=== PATIENT | female | born 1970 | race Caucasian/White ===

== ENCOUNTER → 2016-06-20 | Outpatient (CLI) | payer BC ==
[2016-06-20 09:29] LABS: CH 24.3; CHCM 30.4; HCT 41.5 % (34.0-46.0); HDW 2.53; HGB 12.5 gm/dL (11.4-16.0); Hypochromasia Moderate; MCH 24.2 pg (25.0-35.0); MCHC 30.1 g/dL (31.0-37.0); MCV 80.4 fL (80.0-100.0); Mean Platelet Volume 6.4; RBC 5.17 m/uL (3.80-5.40); RDW 14.2 % (11.5-15.5); WBC 4.7 k/uL (3.8-10.6)
[2016-06-20 09:51] LABS: ALT 28 U/L (9-52); AST 19 U/L (14-36); Alkaline Phosphatase 65 U/L (38-126); Anion Gap 10 mmol/L; Blood Urea Nitrogen 9 mg/dL (7-17); Calcium 9.5 mg/dL (8.4-10.2); Carbon Dioxide 27 mmol/L (22-30); Chloride 105 mmol/L (98-107); Cholesterol 177 mg/dL (<200); Glucose 88 mg/dL (74-99); HDL Cholesterol 53 mg/dL (40-60); Non-African American GFR(MDRD) >60 (>60 ml/min/1.73 sqM); Potassium 4.4 mmol/L (3.5-5.1); Sodium 142 mmol/L (137-145); Total Bilirubin 0.6 mg/dL (0.2-1.3); Total Protein 7.1 g/dL (6.3-8.2); Triglycerides 117 mg/dL (<150)
--- NOTE | 2016-06-21 09:29 | MM ---
Reason for exam: screening (asymptomatic). Last mammogram was performed 1 year and 6 months ago. History: Benign right US cyst aspiration of the right breast, March 05, 2008. Physical Findings: A clinical breast exam by your physician is recommended on an annual basis and results should be correlated with mammographic findings. MG 3D Screening Mammo W/Cad Bilateral CC and MLO view(s) were taken. Prior study comparison: December 20, 2014, bilateral MG diagnostic mammo w CAD RITA. September 23, 2013, CAD bilateral diagnostic mammogram. The breast tissue is heterogeneously dense. This may lower the sensitivity of mammography. Finding: There are skin calcifications in the left breast. There is a chronic nodularity bilaterally. There is no dominant lesion. No significant changes in finding since December 20, 2014 and September 23, 2013. ASSESSMENT: Benign, BI-RAD 2 RECOMMENDATION: Routine screening mammogram of both breasts in 1 year.
== END | disposition home or self-care (01) ==
LOC: RADMAMWWP 07:54
PROVIDERS: ATTEND Family Medicine
DX: Z12.31 Encounter for screening mammogram for malignant neoplasm of breast (principal)
CPT/HCPCS: 84439; 80061; 80053; 84443; 85027; 77063; 36415; G0202

== ENCOUNTER → 2016-11-19 | Outpatient (CLI) | payer BC ==
[2016-11-19 16:32] LABS: CH 24.7; CHCM 30.9; HCT 37.5 % (34.0-46.0); HDW 2.45; HGB 11.9 gm/dL (11.4-16.0); Hypochromasia Slight; MCH 25.4 pg (25.0-35.0); MCHC 31.7 g/dL (31.0-37.0); MCV 80.2 fL (80.0-100.0); RBC 4.68 m/uL (3.80-5.40); RDW 14.4 % (11.5-15.5); WBC 6.4 k/uL (3.8-10.6)
[2016-11-19 16:46] LABS: ALT 25 U/L (9-52); AST 15 U/L (14-36); Alkaline Phosphatase 60 U/L (38-126); Anion Gap 9 mmol/L; Blood Urea Nitrogen 11 mg/dL (7-17); Calcium 9.3 mg/dL (8.4-10.2); Carbon Dioxide 26 mmol/L (22-30); Chloride 105 mmol/L (98-107); Glucose 92 mg/dL (74-99); Magnesium 2.1 mg/dL (1.6-2.3); Non-African American GFR(MDRD) >60 (>60 ml/min/1.73 sqM); Potassium 4.4 mmol/L (3.5-5.1); Sodium 140 mmol/L (137-145); Total Bilirubin 0.5 mg/dL (0.2-1.3)
== END | disposition home or self-care (01) ==
LOC: LABWHC1 16:18
PROVIDERS: ATTEND Family Medicine
DX: K21.0 Gastro-esophageal reflux disease with esophagitis (principal); E66.09 Other obesity due to excess calories; Z68.31 Body mass index [BMI] 31.0-31.9, adult; Z71.89 Other specified counseling
CPT/HCPCS: 36415; 80053; 83735; 85027

== ENCOUNTER → 2017-09-17 | Outpatient (CLI) | payer BC ==
--- NOTE | 2017-09-17 12:56 | US ---
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 Abn labs, not on any thyroid medi cine GLAND SIZE: Right Lobe: 4.9 x 1.2 x 1.9 cm Overall Parenchyma: homogenous Left Lobe: 4.6 x 1.3 x 1.6 cm Overall Parenchyma: homogeneous Isthmus Thickness: 0.3 cm NODULES RIGHT: # of nodules measured on right: 3 1. 0.9 X 0.7 x 0.6 cm mixed nodule at the upper pole with well-defined margins. This nodule is matt ler than wide and shows no intranodular vascularity. Prior size: No prior 2. 0.5 X 0.4 x 0.3 cm hypoechoic nodule at the upper pole with well-defined margins. This nodule i s taller than wide and shows intranodular vascularity. Prior size: No prior 3. 0.8 X 0.6 x 0.4 cm hypoechoic solid nodule at the lower pole with well-defined margins. This nod ule is taller than wide and shows no intranodular vascularity. Prior size: No prior LEFT: # of nodules measured on left: 1 1. 1.2 X 0.7 x 0.7 cm hypoechoic solid nodule at the lower pole with well-defined margins. This no dule is taller than wide and shows intranodular vascularity. Prior size: No prior ISTHMUS: # of nodules measured in the isthmus: 0 Bilateral neck scanned, no evidence of lymphadenopathy. Thyroid gland is normal in size and fairly homogeneous in appearance with scattered small nodules mar ked by technologist. Largest nodule is 1.2 cm hypoechoic solid nodule in left thyroid lower pole. IMPRESSION: As above.
== END | disposition home or self-care (01) ==
LOC: RADUSWWP 12:11
PROVIDERS: ATTEND Obstetrics & Gynecology
DX: E04.2 Nontoxic multinodular goiter (principal); N92.6 Irregular menstruation, unspecified
CPT/HCPCS: 76536

== ENCOUNTER → 2017-10-11 | Outpatient (CLI) | payer BC ==
--- NOTE | 2017-10-15 08:06 | MM ---
Reason for exam: screening (asymptomatic). Last mammogram was performed 1 year and 4 months ago. History: Benign right US cyst aspiration of the right breast, March 05, 2008. Physical Findings: A clinical breast exam by your physician is recommended on an annual basis and results should be correlated with mammographic findings. MG 3D Screening Mammo W/Cad Bilateral CC and MLO view(s) were taken. Prior study comparison: June 20, 2016, bilateral MG 3d screening mammo w/cad. December 20, 2014, bilateral MG diagnostic mammo w CAD RITA. The breast tissue is heterogeneously dense. This may lower the sensitivity of mammography. There is chronic nodularity bilaterally. This finding is changedwhen compared with previous exams. Increase in size. Increase in number. ASSESSMENT: Incomplete: need additional imaging evaluation, BI-RAD 0 RECOMMENDATION: Ultrasound of both breasts. [facility] will attempt to contact patient to return for ultrasound.
== END | disposition home or self-care (01) ==
LOC: RADMAMWWP 06:43
PROVIDERS: ATTEND Obstetrics & Gynecology
DX: Z12.31 Encounter for screening mammogram for malignant neoplasm of breast (principal)
CPT/HCPCS: 77063; 77067

== ENCOUNTER → 2017-10-16 | Outpatient (CLI) | payer BC ==
--- NOTE | 2017-10-17 10:44 | USB ---
Reason for exam: additional evaluation requested from abnormal screening. History: Benign right US cyst aspiration of the right breast, March 05, 2008. Physical Findings: Nurse did not find any significant physical abnormalities on exam. US Breast Workup RITA Right complete breast ultrasound includes all four quadrants, the retroareolar region and axilla. Finding demonstrates a 0.7 x 0.4 x 1.0cm mixed lesion at 12 o'clock, a 4.1 x 1.1 x 3.0cm cystic cluster at 8 o'clock and a 1.1 x 0.9 x 1.3cm mixed lesion at 9 o'clock, favor debris filled cyst, increased through transmission. Left complete breast ultrasound includes all four quadrants, the retroareolar region and axilla. Finding demonstrates a 2.9 x 1.7 x 1.5cm cystic cluster at 1 o'clock and a 0.6 x 0.6 x 0.7c, mixed lesion at 4 o'clock. These results were verbally communicated with the patient and result sheet given to the patient on 10/16/17. ASSESSMENT: Probably benign, BI-RAD 3 RECOMMENDATION: Follow-up diagnostic mammogram and ultrasound of both breasts in 6 months. Manage patient on a clinical basis.
== END | disposition home or self-care (01) ==
LOC: RADUSWWP 15:31
PROVIDERS: ATTEND Obstetrics & Gynecology
DX: R92.8 Other abnormal and inconclusive findings on diagnostic imaging of breast (principal)

== ENCOUNTER → 2017-11-15 | Outpatient (CLI) | payer OTHER ==
--- NOTE | 2017-11-15 09:11 | XR ---
Lumbar spine HISTORY: Trauma and pain 3 views of the lumbar spine Lumbar vertebral bodies show preserved height, alignment, and bone mineralization. Mild spondylosis i s present, mild loss of disc height at L4-5. IMPRESSION: Degenerative disc disease. No acute fracture or subluxation.
--- NOTE | 2017-11-15 09:13 | XR ---
Cervical spine HISTORY: Trauma and pain 5 views of the cervical spine There is a slight spinal curvature. Facet arthropathy changes present. Lateral extension of endplate disc complex causes foraminal encroachment at C4-5, C5-6 on the left, C3-4 and the right. Spondylosis is present at C5-6, C6-7, C4-5. Minimal retrolisthesis grade 1 C3-4. Loss of lordosis may be due to muscle spasm. Odontoid view is limited. IMPRESSION: Degenerative disc disease and facet arthropathy.
--- NOTE | 2017-11-15 09:14 | XR ---
Thoracic spine HISTORY: Trauma and pain 3 views of the thoracic spine Thoracic vertebral bodies show preserved height, alignment, and bone mineralization. There is multile jorge spondylosis. Some mild loss of disc height at the intervertebral levels. There is a gentle spinal curvature. IMPRESSION: Degenerative disc disease, no acute fracture or subluxation.
== END | disposition home or self-care (01) ==
LOC: RADXRMAIN 07:50
PROVIDERS: ATTEND Emergency Medicine
DX: M50.30 Other cervical disc degeneration, unspecified cervical region (principal); M46.92 Unspecified inflammatory spondylopathy, cervical region; M51.34 Other intervertebral disc degeneration, thoracic region; M51.36 Other intervertebral disc degeneration, lumbar region; S13.4XXA Sprain of ligaments of cervical spine, initial encounter; S23.3XXA Sprain of ligaments of thoracic spine, initial encounter; S39.012A Strain of muscle, fascia and tendon of lower back, initial encounter
CPT/HCPCS: 72050; 72072; 72100

== ENCOUNTER → 2018-01-22 | Outpatient (CLI) | payer BC ==
[2018-01-22 13:18] LABS: HCT 36.6 % (34.0-46.0); HGB 11.5 gm/dL (11.4-16.0); Hypochromasia Slight; MCH 23.6 pg (25.0-35.0); MCHC 31.4 g/dL (31.0-37.0); MCV 75.3 fL (80.0-100.0); Mean Platelet Volume 7.6; Microcytosis Slight; Platelet Count 356 k/uL (150-450); RBC 4.85 m/uL (3.80-5.40); RDW 15.4 % (11.5-15.5); WBC 5.1 k/uL (3.8-10.6)
[2018-01-22 14:10] LABS: ALT 25 U/L (9-52); AST 17 U/L (14-36); Albumin 4.1 g/dL (3.5-5.0); Alkaline Phosphatase 56 U/L (38-126); Anion Gap 9 mmol/L; Blood Urea Nitrogen 7 mg/dL (7-17); Calcium 9.4 mg/dL (8.4-10.2); Carbon Dioxide 24 mmol/L (22-30); Chloride 107 mmol/L (98-107); Glucose 99 mg/dL (74-99); Potassium 3.6 mmol/L (3.5-5.1); Sodium 140 mmol/L (137-145); Total Bilirubin 0.2 mg/dL (0.2-1.3); Total Protein 6.6 g/dL (6.3-8.2)
[2018-01-22 14:27] LABS: T4, Free (Free Thyroxine) 0.69 ng/dL (0.78-2.19)
== END | disposition home or self-care (01) ==
LOC: LABWHC1 12:49
PROVIDERS: ATTEND Internal Medicine
DX: E05.90 Thyrotoxicosis, unspecified without thyrotoxic crisis or storm (principal)
CPT/HCPCS: 36415; 80053; 84439; 84443; 84481; 85027

== ENCOUNTER → 2019-10-07 | Outpatient (CLI) | payer BC ==
[2019-10-07 11:47] LABS: Basophils % (A) 1 %; Eosinophils # (A) 0.1 k/uL (0-0.7); Eosinophils % (A) 3 %; HCT 42.7 % (34.0-46.0); HGB 13.3 gm/dL (11.4-16.0); Lymphocytes # (A) 1.5 k/uL (1.0-4.8); Lymphocytes % (A) 28 %; MCH 26.1 pg (25.0-35.0); MCHC 31.2 g/dL (31.0-37.0); MCV 83.6 fL (80.0-100.0); Mean Platelet Volume 7.5; Monocytes # (A) 0.3 k/uL (0-1.0); Monocytes % (A) 5 %; Neutrophils # (A) 3.3 k/uL (1.3-7.7); Neutrophils % (A) 63 %; Platelet Count 288 k/uL (150-450); RDW 14.2 % (11.5-15.5); WBC 5.2 k/uL (3.8-10.6)
[2019-10-07 18:32] LABS: % Iron Saturation 25.98 (12.00-45.00)
[2019-10-07 18:49] LABS: Ferritin 16.2 ng/mL (10.0-291.0)
== END | disposition home or self-care (01) ==
LOC: LABWHC1 11:03
PROVIDERS: ATTEND Family Medicine
DX: D50.9 Iron deficiency anemia, unspecified (principal)
CPT/HCPCS: 36415; 82728; 83540; 83550; 85025

== ENCOUNTER → 2019-11-18 | Outpatient (CLI) | payer BC ==
--- NOTE | 2019-11-19 10:57 | MM ---
Reason for exam: screening (asymptomatic). Last mammogram was performed 2 years and 1 month ago. History: Benign right US cyst aspiration of the right breast, March 05, 2008. Physical Findings: A clinical breast exam by your physician is recommended on an annual basis and results should be correlated with mammographic findings. MG 3D Screening Mammo W/Cad Bilateral CC and MLO view(s) were taken. Prior study comparison: October 11, 2017, bilateral MG 3d screening mammo w/cad. June 20, 2016, bilateral MG 3d screening mammo w/cad. The breast tissue is heterogeneously dense. This may lower the sensitivity of mammography. Appearance of increasing nodularity right CC view. Ultrasound recommended. Possible distortion subareolar left CC view at a middle depth on 3D images. ASSESSMENT: Incomplete: need additional imaging evaluation, BI-RAD 0 RECOMMENDATION: Special view mammogram of the left breast. (3D) Ultrasound of the right breast. [facility] will attempt to contact patient to return for supplemental views and ultrasound.
== END | disposition home or self-care (01) ==
LOC: RADMAMWWP 07:54
PROVIDERS: ATTEND Obstetrics & Gynecology
DX: Z12.31 Encounter for screening mammogram for malignant neoplasm of breast (principal)
CPT/HCPCS: 77063; 77067

== ENCOUNTER → 2019-11-25 | Outpatient (CLI) | payer BC ==
--- NOTE | 2019-11-25 14:04 | MM ---
Reason for exam: additional evaluation requested from abnormal screening. Last mammogram was performed less than 1 month ago. History: Benign right US cyst aspiration of the right breast, March 05, 2008. Physical Findings: Nurse Summary: 0.5 x 1cm nodule in the right breast at 12 o'clock (nurse ts). MG 3D Work Up W/Cad LT Spot compression CC, spot compression MLO, and LM view(s) were taken of the left breast. Prior study comparison: November 18, 2019, bilateral MG 3d screening mammo w/cad. October 11, 2017, bilateral MG 3d screening mammo w/cad. Partially obscured spiculated upper outer left breast. Ultrasound recommended bilaterally. These results were verbally communicated with the patient and result sheet given to the patient on 11/25/19. ASSESSMENT: Incomplete: need additional imaging evaluation, BI-RAD 0 RECOMMENDATION: Ultrasound of both breasts. Manage patient on a clinical basis.
--- NOTE | 2019-11-25 14:08 | USB ---
Reason for exam: additional evaluation requested from abnormal screening. History: Benign right US cyst aspiration of the right breast, March 05, 2008. US Breast Workup Limited RITA Right complete breast ultrasound includes all four quadrants, the retroareolar region and axilla. Finding demonstrates a 3.4 x 1.1 x 3.6cm cystic cluster at 9 o'clock and a 0.5 x 0.4 x 0.5cm mixed lesion at 10 o'clock for which an aspiration is recommended. Left limited breast ultrasound including focal area of concern, retroareolar and axilla demonstrates a 3.4 x 0.5 x 1.0cm cystic cluster at 2 o'clock and a 0.8 x 0.5 x 0.7cm irregular, hypoechoic lesion at 12 o'clock for which a biopsy is recommended. These results were verbally communicated with the patient and result sheet given to the patient on 11/25/19. ASSESSMENT: Suspicious, BI-RAD 4 RECOMMENDATION: Aspiration of the right breast. Ultrasound core biopsy of the left breast. Called Dr. Acevedo's office with mammographic findings and has scheduled an appointment for the patient for 12/09/19 at 1:[address] Holt. Biopsy scheduled for 12/03/19 at 1:00. PRELIMINARY REPORT CALLED AND FAXED TO DR. HOLT ON 11/25/19.
== END | disposition home or self-care (01) ==
LOC: RADMAMWWP 07:21
PROVIDERS: ATTEND Obstetrics & Gynecology
DX: R92.8 Other abnormal and inconclusive findings on diagnostic imaging of breast (principal)
CPT/HCPCS: 77061; 77065

== ENCOUNTER → 2019-12-03 | Day surgery (SDC) | payer BC ==
[2019-12-03 12:15] VITALS: RESP 16
[2019-12-03 14:51] VITALS: BP 129/79; PULSE 70; TEMP 98.3
--- NOTE | 2019-12-03 16:15 | USB ---
EXAMINATION TYPE: US biopsy breast VAD RT, US biopsy breast VAD LT Bilateral postprocedure mammograms DATE OF EXAM: 12/03/2019 CLINICAL HISTORY: 49-year-old female R92.8 ABN MAMMO. TECHNIQUE: Ultrasound guided core biopsy of the bilateral breast. COMPARISON: 11/25/2019 FINDINGS: The procedure of ultrasound guided core biopsy was explained to the patient. Benefits, alternatives, and risks were discussed. An informed consent was then obtained. The patient was placed in supine positioning for imaging and for the procedure. The overlying skin was prepped and draped in usual sterile fashion. Lidocaine was used as anesthetic into the skin and subcutaneous tissue up to area of concern in each breast in turn. 1.) RIGHT 10:00, possibly cystic: Under ultrasound guidance, a 13-gauge vacuum- assisted mammotome Elite biopsy gun was used to obtain 5 core samples. Following this, a coil clip was left in lesion. 2.) LEFT 12:00, BI-RADS 5 irregular mass: Under ultrasound guidance, a 13-gauge vacuum-assisted mammotome Elite biopsy gun was used to obtain 7 core samples. Following this, a wing clip was left in lesion. The patient tolerated the procedure well without any immediate complication. The patient was kept in the radiology department for short stay after the procedure and then discharged home in stable condition. Postprocedure mammogram shows clips in the appropriate position. IMPRESSION: 1. Successful, uncomplicated ultrasound guided core biopsy of a BI-RADS 5, 12 o'clock lesion in the left breast. Full pathology results to follow. 2. Successful, uncomplicated ultrasound-guided core biopsy of indeterminate, possibly cystic, low suspicion lesion in the 10:00 right breast. Full pathology results to follow. Pathology Results: Malignant A. LEFT BREAST, NEEDLE CORE BIOPSIES: Infiltrating well-differentiated ([place] Grade 1) adenocarcinoma occupying about 75% of tissue volume. See note. B. RIGHT BREAST, NEEDLE CORE BIOPSY: Benign breast parenchyma showing fibrocystic spectrum lesions including apocrine metaplasia, duct cystic changes, stromal fibrosis, sclerosing adenosis and usual type duct hyperplasia. Recommendation Surgical consult. DAYAND
== END ==
LOC: RADUSWWP 11:43
PROVIDERS: ATTEND Student in an Organized Health Care Education/Training Program
DX: R92.8 Other abnormal and inconclusive findings on diagnostic imaging of breast (principal)
CPT/HCPCS: 88305; 88342; 88341; 77066; 19083; 19084; A4648; J2001

== ENCOUNTER → 2019-12-14 | Outpatient (CLI) | payer BC ==
[2019-12-14 14:48] LABS: Basophils % (A) 1 %; Eosinophils # (A) 0.2 k/uL (0-0.7); Eosinophils % (A) 3 %; HCT 42.2 % (34.0-46.0); HGB 13.5 gm/dL (11.4-16.0); Lymphocytes # (A) 1.5 k/uL (1.0-4.8); Lymphocytes % (A) 26 %; MCH 27.1 pg (25.0-35.0); MCHC 32.1 g/dL (31.0-37.0); MCV 84.5 fL (80.0-100.0); Mean Platelet Volume 7.2; Monocytes # (A) 0.3 k/uL (0-1.0); Monocytes % (A) 5 %; Neutrophils # (A) 3.8 k/uL (1.3-7.7); Neutrophils % (A) 65 %; Platelet Count 336 k/uL (150-450); RBC 4.99 m/uL (3.80-5.40); RDW 13.2 % (11.5-15.5); WBC 5.8 k/uL (3.8-10.6)
== END | disposition home or self-care (01) ==
LOC: LABPAT 13:07
PROVIDERS: ATTEND Obstetrics & Gynecology
DX: Z01.818 Encounter for other preprocedural examination (principal); N91.2 Amenorrhea, unspecified
CPT/HCPCS: 85025

== ENCOUNTER → 2019-12-14 | Outpatient (CLI) | payer BC ==
[2019-12-14 20:12] LABS: African American GFR (CKD) 98.9 (60.0-200.0); Albumin 4.4 g/dL (3.80-4.90); Albumin/Globulin Ratio 2.1 (1.60-3.17); Anion Gap 8.1 mmol/L (4.00-12.00); BUN/Creat Ratio 8.75 Ratio (12.00-20.00); Calcium 9.5 mg/dL (8.7-10.3); Carbon Dioxide 25.9 mmol/L (21.6-31.8); Globulin 2.1 g/dL (1.6-3.3); Non-African American GFR(CKD) 85.4 (60.0-200.0); Potassium 4.4 mmol/L (3.5-5.5); Total Bilirubin 0.6 mg/dL (0.2-1.2); Total Protein 6.5 g/dL (6.2-8.2)
== END | disposition home or self-care (01) ==
LOC: LABWHC1 13:04
PROVIDERS: ATTEND Student in an Organized Health Care Education/Training Program
DX: C50.912 Malignant neoplasm of unspecified site of left female breast (principal)
CPT/HCPCS: 36415; 80053; 83615

== ENCOUNTER → 2019-12-18 | Outpatient (CLI) | payer BC ==
--- NOTE | 2019-12-20 14:33 | CT ---
EXAMINATION TYPE: CT ChestAbdPelvis w con DATE OF EXAM: 12/18/2019 COMPARISON: Chest 11/06/2012 HISTORY: 49 year-old female left side breast ca. TECHNIQUE: Contiguous axial scanning of the chest, abdomen, and pelvis performed with IV Contrast, pa tient injected with 100 mL of Isovue 300. Delayed images through the kidneys were obtained. Coronal/s agittal reconstructions performed. CT DLP: 1170.80 mGycm Automated exposure control for dose reduction was used. FINDINGS: CHEST: Heart size without pericardial effusion. Aorta normal caliber with conventional branching anatomy. No thoracic lymphadenopathy by CT size criteria. Microclip within the bilateral breasts, and known biopsy-proven left breast cancer at the 12:00 posit ion. Mild dependent atelectasis. No consolidation or pleural effusion. ABDOMEN: Tiny 5 mm hypodensity anterior segment 4 left liver lobe, axial image 58 to small for accurate CT alexis racterization, likely a tiny cyst. Portal venous system is patent. No biliary ductal dilatation. Gallbladder, left adrenal gland, left kidney, spleen, and pancreas appear within normal limits. Nodule within the right adrenal gland measures 1.8 x 1.1 cm and was present on the patient's 2013 CT chest suggesting a benign adrenal adenoma. No dilated small bowel, free fluid, or free air. No mesenteric or retroperitoneal lymphadenopathy. Normal appendix. Sdbl-by-qodkzmgl stool. No pericolonic inflammatory change. PELVIS: Bladder partially distended. Uterus anteverted. Both ovaries are visualized. There is a 2.5 cm cystic lesion within the left ovary. No abnormal fluid collection in the pelvis or pelvic lymphadenopathy. BONES: A couple sclerotic foci within the right side of the pelvis are nonspecific, probable bone islands. S imilar sclerotic focus right humeral head also likely bone island was present back on 2012. Some dege nerative disc disease at L4-L5 with some L5 superior endplate sclerosis, likely on a degenerative bas is. Facet arthropathy with trace grade 1 retrolistheses at L2-L3 and L3-L4. No osseous destructive process is seen. IMPRESSION: 1. MICROCLIPS IN THE BILATERAL BREASTS FROM RECENT BIOPSIES. BIOPSY-PROVEN LEFT BREAST CANCER. 2. NO SPECIFIC FINDINGS OF METASTATIC DISEASE IN THE CHEST, ABDOMEN, OR PELVIS. A FEW SCLEROTIC FOCI IN THE RIGHT SIDE OF THE PELVIS AND RIGHT HUMERAL HEAD LIKELY REPRESENT BONE ISLANDS ESPECIALLY SINCE THE FOCUS IN THE RIGHT HUMERAL HEAD WAS PRESENT BACK IN 2012. 3. ALSO STABLE 1.8 CM BENIGN RIGHT ADRENAL ADENOMA. 4. A 2.5 CM CYSTIC LESION OF THE LEFT OVARY COULD REPRESENT A DOMINANT FOLLICLE OR FUNCTIONAL CYST. C ORRELATE WITH PATIENT'S MENOPAUSAL STATUS. IF THE PATIENT IS POSTMENOPAUSAL, PELVIC ULTRASOUND IS REC OMMENDED FOR FURTHER CHARACTERIZATION AND TO DETERMINE SUBSEQUENT FOLLOW-UP.
== END | disposition home or self-care (01) ==
LOC: RADCTMAIN 17:30
PROVIDERS: ATTEND Student in an Organized Health Care Education/Training Program
DX: C50.912 Malignant neoplasm of unspecified site of left female breast (principal); D35.01 Benign neoplasm of right adrenal gland; N83.202 Unspecified ovarian cyst, left side; M89.8X8 Other specified disorders of bone, other site
CPT/HCPCS: 71260; 74177; Q9967

== ENCOUNTER → 2019-12-22 | Outpatient (CLI) | payer BC | END | disposition home or self-care (01) | LOC: LABWHC1 12:09 | PROVIDERS: ATTEND Student in an Organized Health Care Education/Training Program | DX: U07.1 COVID-19 (principal) | CPT/HCPCS: U0003; C9803 ==

== ENCOUNTER → 2019-12-25 | Day surgery (SDC) | payer BC ==
[2019-12-24 09:08] VITALS: BMI 31.0
[~2019-12-25] MED LIST: ALPRAZolam 0.5 MG TAB ONE; ALPRAZolam 0.5 MG TAB PO ONE; BUPIVACAIN-EPI 0.25%-1:200,000 30 ML VIAL SQ ONE; DEXAMETHASONE SOD PHOSPHATE 10 MG/ML 1 ML VIAL IV ONE; HEPARIN SODIUM,PORCINE 5,000 UNIT/ML 1 ML VIAL SQ ONE; HYDROcodone/APAP 5-325MG 1 EACH TAB ONE; HYDROcodone/APAP 5-325MG 1 EACH TAB PO ONE; LACTATED RINGERS 1,000 ML IV ONE; LACTATED RINGERS 1,000 ML IV SCH; LIDOCAINE 1% INJ 10MG/ML (20 ML MDV) ONE; LIDOCAINE 1% INJ 10MG/ML (20 ML MDV) SQ ONE; METHYLENE BLUE 50 MG/10 ML AMPUL INJ ONE; MIDAZOLAM 2 MG/2 ML VIAL IV PRN; MIDAZOLAM 2 MG/2 ML VIAL ONE; ONDANSETRON 4 MG/2 ML VIAL ONE; PROPOFOL 10 MG/ML 20 ML VIAL IV ONE; Pre Op ABX Message 1 EACH MISC MISCELLANE ONE; SCOPOLAMINE 1.5MG/72HR PATCH TRANSDERM ONE; SODIUM CHLORIDE 0.9% 50 ML with ceFAZolin 2,000 MG IV ONE; SUCCINYLCHOLINE CHLORIDE 100 MG/5 ML SYR IV ONE; fentaNYL (PF) 50 MCG/ML 2 ML AMP ONE
[2019-12-25] MEDS: ONDANSETRON 4 MG/2 ML VIAL IVP ONE ×2 (08:43→14:41)
--- NOTE | 2019-12-25 11:48 | NM ---
EXAMINATION TYPE: NM sentinel node injection DATE OF EXAM: 12/25/2019 COMPARISON: 12/03/2019 HISTORY: 49 year-old female with biopsy-proven left breast cancer TECHNIQUE AND FINDINGS: The procedure of sentinel lymph node injection was explained to the patient. The benefits, alternatives, and risks were discussed. An informed consent was then obtained. Overlying skin is cleaned with sterile alcohol. Following this, 485 uCi technetium 99m Tilmanocept wa s injected surrounding the upper outer aspect of the left nipple intradermally. The patient tolerated the procedure well without any immediate complication. The patient was kept in the radiology department for short stay after the procedure and then taken to surgery for surgical p rocedure what is presumed intraoperative gamma probe will be used for sentinel lymph node detection. IMPRESSION: Left breast radiotracer injection for sentinel node localization as above.
[2019-12-25 14:09] VITALS: TEMP 98.6
[2019-12-25] MEDS: HYDROmorphone 0.5 MG/0.5 ML SYRINGE IVP PRN ×3 (14:18→14:36)
--- NOTE | 2019-12-25 14:26 | P.OP ---
Date of Procedure: 12/25/19 Preoperative Diagnosis: Breast cancer Postoperative Diagnosis: Same Procedure(s) Performed: Left needle localized lumpectomy with sentinel lymph node biopsy Anesthesia: KATHIA Surgeon: Bartolo Bradford Estimated Blood Loss (ml): 20 Condition: stable Disposition: PACU Description of Procedure: Patient was brought into the operative suite remained in the supine position underwent general endotracheal anesthesia per Department of anesthesia. Needle had previously been placed in the left breast to localize the clip and previous biopsy of the breast cancer. She also underwent radionucleotide injection in radiology. 2 mL of methylene blue was diluted with 8 mL of normal saline 5 mL of this was injected retroareolar and massaged. The patient was then prepped and draped in the usual sterile fashion timeout was performed correct patient correct procedure correct site was verified. A 3 cm incision was made in the left axilla and carried down to the sentinel lymph node which was noted to be blue and hot at 1795 this was excised and sent to pathology. There was no other radioactive activity within the axilla there is no other palpable nodes there was no other blue nodes found. Attention was turned to the left breast a 4 cm incision was made directly over the wire circumferentially flaps were created and the excision was performed being sure to include the wire and the clip in the specimen. This was sent to mammography and specimen was noted to have clip and wire within the specimen. The patient did have some density in her breast and along the lateral margin near the excision site and extended lateral margin was excised to ensure clean margins. Both incisions were irrigated and hem ostasis was achieved. Incisions were then closed with 3-0 subdermal interrupted Vicryl sutures followed by 4-0 Monocryl running subcuticular sutures. Sterile dressing was applied patient tolerated the procedure well there are no apparent complications Plan - Discharge Summary Discharge Rx Participant: Yes New Discharge Prescriptions: No Action Fluticasone/Salmeterol [Advair 250-50 Diskus] 1 puff INHALATION RT-BID Ferrous Sulfate [Iron] 325 mg PO DAILY FLUoxetine HCL [PROzac] 40 mg PO DAILY Omeprazole 20 mg PO DAILY ALPRAZolam [Xanax] 1 mg PO DAILY PRN PRN Reason: Anxiety Cetirizine HCl/Pseudoephedrine [Zyrtec-D Tablet] 1 each PO DAILY Discharge Medication List Fluticasone/Salmeterol [Advair 250-50 Diskus] 1 puff INHALATION RT-BID 05/12/15 [History] FLUoxetine HCL [PROzac] 40 mg PO DAILY 11/25/19 [History] Ferrous Sulfate [Iron] 325 mg PO DAILY 11/25/19 [History] Omeprazole 20 mg PO DAILY 11/25/19 [History] ALPRAZolam [Xanax] 1 mg PO DAILY PRN 12/24/19 [History] Cetirizine HCl/Pseudoephedrine [Zyrtec-D Tablet] 1 each PO DAILY 12/24/19 [History]
[2019-12-25 15:14] VITALS: RESP 17
[2019-12-25 15:25] VITALS: BP 146/79; PULSE 89
--- NOTE | 2019-12-25 17:11 | MM ---
EXAMINATION TYPE: MG pre op needle loc LT, MG surgical specimen LT DATE OF EXAM: 12/25/2019 COMPARISON: 12/03/2019 and 11/18/2019 CLINICAL HISTORY: 49-year-old female with biopsy-proven left breast cancer TECHNIQUE: Needle localization with wire placement and surgical excision of area of concern in the 12 :00 left breast. FINDINGS: The procedure of needle localization with wire placement and than surgical excision was exp lained to the patient. Benefits, alternatives, and risks were discussed. An informed consent was th en obtained. The shortest pathway for procedure was chosen. Shortest pathway was a CC from above approach. The ov erlying skin was prepped and draped in usual sterile fashion. Lidocaine was used as anesthetic into the skin and subcutaneous tissue up to the level of area of concern. A 7 cm needle was used. It was placed via a CC from above approach under mammographic guidance. Subsequent 90 degrees mammogram sh ow the needle to be in satisfactory position relative to the targeted area. At this point, wire was placed and the needle was withdrawn. The wire was fixed to patient's skin. Images were marked for s rachid. The patient tolerated the procedure well without any immediate complication. The patient was kept in the radiology department for short stay after the procedure and then taken to surgery for surgical e xcision. Targeted clip and wire are identified in specimen mammogram. The patient was kept in hospital for s hort stay after the procedure and then discharged home in stable condition. IMPRESSION: Successful, uncomplicated needle localization with wire placement and surgical excision of biopsy-pro aleah 12:00 left breast cancer. Full pathology results to follow.
== END | disposition home or self-care (01) ==
LOC: OR 08:05
PROVIDERS: ATTEND Student in an Organized Health Care Education/Training Program
DX: C50.912 Malignant neoplasm of unspecified site of left female breast (principal); E05.90 Thyrotoxicosis, unspecified without thyrotoxic crisis or storm; F32.9 Major depressive disorder, single episode, unspecified; F41.9 Anxiety disorder, unspecified; Z98.51 Tubal ligation status; Z98.890 Other specified postprocedural states; Z80.6 Family history of leukemia; Z79.890 Hormone replacement therapy; Z79.51 Long term (current) use of inhaled steroids; Z79.899 Other long term (current) drug therapy
CPT/HCPCS: 19301; 38525; 81025; 88342; 88307; 88341; 76098; 38792; A9520; J2250; J1644; J1100; J2405; J0690; J2001; J3010; J0330; J2704; Q9968; J1170

== ENCOUNTER → 2020-02-11 | Outpatient (CLI) | payer BC | END | disposition home or self-care (01) | LOC: LABWHC1 15:21 | PROVIDERS: ATTEND Internal Medicine Critical Care Medicine | DX: E05.90 Thyrotoxicosis, unspecified without thyrotoxic crisis or storm (principal) | CPT/HCPCS: 36415; 84439; 84443 ==

== ENCOUNTER → 2020-04-19 | Outpatient (CLI) | payer BC ==
--- NOTE | 2020-04-20 08:05 | USB ---
Reason for exam: clinical finding. History: Patient has history of breast cancer at age 49. Malignant MG pre op needle loc LT of the left breast, December 25, 2019. Lumpectomy of the left breast, December 25, 2019. Malignant US biopsy breast VAD LT of the left breast, December 03, 2019. Benign US biopsy breast VAD RT of the right breast, December 03, 2019. Benign right US cyst aspiration of the right breast, March 05, 2008. Indicated problem(s): lump or thickening in the right breast. Physical Findings: Nurse Summary: Patient complains of right breast lump increased since December 2019. 2cm lump right breast 9 o'clock (nurse mj). US Breast RT Right complete breast ultrasound includes all four quadrants, the retroareolar region and axilla. Finding demonstrates a 0.4 x 0.6 x 0.4cm oval, complex, cystic lesion at 12 o'clock, a 1.0 x 0.6 x 0.4cm oval, cystic cluster at 8 o'clock, a 3.2 x 2.6 x 2.0cm oval, mixed lesion at 9 o'clock, cyst aspiration for complex cyst recommended, a 0.6 x 0.6 x 0.5cm oval, cystic lesion at 10 o'clock and a 0.8 x 0.7 x 0.5cm oval lymph node at the axilla. These results were verbally communicated with the patient and result sheet given to the patient on 04/19/20. ASSESSMENT: Suspicious, BI-RAD 4 RECOMMENDATION: Aspiration of the right breast. Called office with mammographic findings and has scheduled an appointment for the patient for 04/27/20 at 11:[address] Holt. Aspiration scheduled for 04/20/20 at 10:30. PRELIMINARY REPORT CALLED AND FAXED TO DR. HOLT ON 04/20/20.
== END | disposition home or self-care (01) ==
LOC: RADUSWWP 14:16
PROVIDERS: ATTEND Student in an Organized Health Care Education/Training Program
DX: N63.10 Unspecified lump in the right breast, unspecified quadrant (principal)

== ENCOUNTER → 2020-04-20 | Day surgery (SDC) | payer BC ==
[2020-04-20 09:57] VITALS: RESP 12
[2020-04-20 10:59] VITALS: BP 124/78; PULSE 73; TEMP 98.7
--- NOTE | 2020-04-20 11:40 | USB ---
Ultrasound-guided cyst aspiration right breast HISTORY: Palpable abnormality in complex cyst seen on ultrasound The lesion in question within the right 9:00 breast was localized sonographically by the undersigned. Procedure was performed by the undersigned. Informed consent was obtained and all of the patients qu estions were answered. The standard sterile technique was utilized and appropriate local anesthesia was obtained with 1% lidocaine. An 18-gauge needle was introduced into the lesion and approximately 7 to 8 cc of bloody fluid was obtained. The lesion is no longer visible. Microclip marker was deployed at the site of aspiration. The patient tolerated the procedure well and left the department in stabl e condition. IMPRESSION: Successful ultrasound cyst aspiration right 9:00 lesion with cytology pending.
== END ==
LOC: RADUSWWP 09:26
PROVIDERS: ATTEND Student in an Organized Health Care Education/Training Program
DX: N60.01 Solitary cyst of right breast (principal)
CPT/HCPCS: 88305; 88173; 76942; 19000; A4648; J2001

== ENCOUNTER → 2020-10-05 | Outpatient (CLI) | payer BC ==
--- NOTE | 2020-10-06 14:59 | MM ---
Reason for exam: additional evaluation requested from prior study. Last mammogram was performed 10 months ago. History: Patient has history of breast cancer at age 49. Benign US breast aspiration single RT of the right breast, April 20, 2020. Malignant MG pre op needle loc LT of the left breast, December 25, 2019. Lumpectomy of the left breast, December 25, 2019. Malignant US biopsy breast VAD LT of the left breast, December 03, 2019. Benign US biopsy breast VAD RT of the right breast, December 03, 2019. Benign right US cyst aspiration of the right breast, March 05, 2008. Physical Findings: Nurse did not find any significant physical abnormalities on exam. MG 3D Diag Mammo W/Cad RITA Bilateral CC and MLO view(s) were taken. Prior study comparison: December 03, 2019, bilateral MG diagnostic carrie BI wo CAD. November 25, 2019, left breast MG 3d work up w/cad LT. The breast tissue is heterogeneously dense. This may lower the sensitivity of mammography. Previous mammotome biopsy in the right breast. There is chronic nodularity in the right breast. Spiculated density 12 o'clock left breast likely secondary to previous biopsy. Ultrasound recommended. These results were verbally communicated with the patient and result sheet given to the patient on 10/05/20. ASSESSMENT: Incomplete: need additional imaging evaluation, BI-RAD 0 RECOMMENDATION: Ultrasound of the left breast.
--- NOTE | 2020-10-06 15:01 | USB ---
Reason for exam: additional evaluation requested from abnormal screening. History: Patient has history of breast cancer at age 49. Benign US breast aspiration single RT of the right breast, April 20, 2020. Malignant MG pre op needle loc LT of the left breast, December 25, 2019. Lumpectomy of the left breast, December 25, 2019. Malignant US biopsy breast VAD LT of the left breast, December 03, 2019. Benign US biopsy breast VAD RT of the right breast, December 03, 2019. Benign right US cyst aspiration of the right breast, March 05, 2008. US Breast Limited LT Left limited breast ultrasound including focal area of concern, retroareolar and axilla demonstrates a 5.1 x 3.0cm irregular, solid, hypoechoic lesion at 12 o'clock. These results were verbally communicated with the patient and result sheet given to the patient on 10/05/20. ASSESSMENT: Suspicious, BI-RAD 4 RECOMMENDATION: Ultrasound core biopsy of the left breast. Called Dr. Agarwal's office with mammographic findings and has scheduled an appointment for the patient for 10/26/20 at 9:[address] Holt. Biopsy scheduled for 10/19/20 at 8:00. PRELIMINARY REPORT CALLED AND FAXED TO DR. HOLT ON 10/06/20
== END | disposition home or self-care (01) ==
LOC: RADMAMWWP 12:48
PROVIDERS: ATTEND Radiology Radiation Oncology
DX: N64.59 Other signs and symptoms in breast (principal); Z85.3 Personal history of malignant neoplasm of breast
CPT/HCPCS: 77062; 77066

== ENCOUNTER → 2020-10-19 | Day surgery (SDC) | payer BC ==
[2020-10-19 07:17] VITALS: BP 124/76; PULSE 87; RESP 16; TEMP 98.5
--- NOTE | 2020-10-19 09:07 | USB ---
Discontinued ultrasound guided left breast biopsy. HISTORY: Patient had left breast cancer with surgical excision and one round of radiation therapy. Findings: The region of interest in the left breast at 12:00 was sonographically evaluated. There is an area of extensive scar tissue at 12:00 extending to the skin level of the skin. This is at the site of posts urgical resection of the left breast. This region is suggestive of scar tissue. There is no color osvaldo w to this region. A follow-up sonographic study is recommended in 3 months. The patient should return earlier if clinical concern. IMPRESSION: 1. At 12:00 in the region of interest in the left breast, there is extensive scar tissue extending to the level of the skin. No color flow is seen within this region. This is at the site of postsurgical resection of the left breast. The left breast biopsy was canceled at this time. A three-month follow -up left breast ultrasound will be obtained. BI-RADS 3 Probably benign: Short-term interval follow-up is recommended Follow-up left breast ultrasound in 3 months.
== END ==
LOC: RADUSWWP 06:56
PROVIDERS: ATTEND Student in an Organized Health Care Education/Training Program
DX: R92.8 Other abnormal and inconclusive findings on diagnostic imaging of breast (principal); Z85.3 Personal history of malignant neoplasm of breast; Z53.8 Procedure and treatment not carried out for other reasons; Z92.3 Personal history of irradiation

== ENCOUNTER → 2020-11-11 | Outpatient (CLI) | payer BC ==
--- NOTE | 2020-11-14 09:06 | BMR ---
EXAMINATION TYPE: MR breast BILAT wo/w con DATE OF EXAM: 11/11/2020 COMPARISON: CT chest abdomen and pelvis December 18, 2019 Bilateral 3-D diagnostic mammogram October 05, 2020 BI-RADS 0. Ultrasound left breast October 05, 2020 BI-RADS 4. 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 Benign biopsy right breast December 2019. Surgical excisi on left-sided breast cancer December 25, 2019 had 2.0 x 1.4 x 1.0 cm infiltrating well-differentiated car cinoma in a background intermediate grade DCIS. Discontinued ultrasound biopsy October 19, 2020 felt to r eflect posttreatment change or scar. TECHNIQUE: A series of fat and water weighted images in the long and short axis views of both breasts are obtained in conjunction with dynamic contrast MRI with subtraction technique. The patient was i njected with 8 mL intravenous Gadavist gadolinium contrast. Three-dimensional and additional postpr ocessing imaging is created on independent workstation and reviewed during official interpretation of this study. FINDINGS: Heterogeneously dense fibroglandular tissue is redemonstrated bilaterally. There are tiny t hin-walled cysts of varying size and shape scattered throughout the bilateral breasts. There is dimin ished size to the left breast with mild subcutaneous edema present to reflect posttreatment change. T here is no suspicious new axillary adenopathy. Postcontrast images show mild to moderate symmetric ba ckground enhancement. Delayed dynamic imaging shows no suspicious internal mammary adenopathy bilater ally. Regards to the right breast there is artifact from biopsy clip in the central position with tiny 4 mm rim-enhancing focus just inferior and anterior to this. This has benign gradual enhancement. Lesion on the inferior lateral aspect of site of focal fibroglandular tissue. No abnormal skin thickening. T he chest wall is intact. With regards to the left breast surgical changes in the left axilla or scarring identified. There is posttreatment change or scarring in the upper 12:00 position of left breast corresponding to mammogra m and ultrasound abnormality. No suspicious enhancement or enhancing masses identified. The chest wal l is intact. IMPRESSION: Posttreatment changes to the left breast. No convincing MRI evidence for invasive maligna ncy in the right breast. BI-RADS 2 benign findings left breast. BI-RADS 2 benign findings right breast. Recommendation: Return to routine follow-up, patient due for bilateral breast mammogram in October 2021 b e back on annual schedule.
== END | disposition home or self-care (01) ==
LOC: RADMRIMAIN 06:09
PROVIDERS: ATTEND Student in an Organized Health Care Education/Training Program
DX: R92.2 Inconclusive mammogram (principal); Z85.3 Personal history of malignant neoplasm of breast
CPT/HCPCS: 77049; C8937; A9585

== ENCOUNTER → 2021-01-13 | Outpatient (CLI) | payer BC ==
[2021-01-13 23:49] LABS: Basophils # (A) 0.03 X 10*3/uL (0.00-0.10); Basophils % (A) 0.5 %; Eosinophils # (A) 0.12 X 10*3/uL (0.04-0.35); HCT 42.9 % (37.2-46.3); HGB 13.1 g/dL (12.0-15.0); Lymphocytes # (A) 1.45 X 10*3/uL (0.90-5.00); Lymphocytes % (A) 24.2 %; MCH 25.8 pg (27.0-32.0); MCHC 30.5 g/dL (32.0-37.0); MCV 84.6 fL (80.0-97.0); Mean Platelet Volume 10.5 fL (9.5-12.2); Monocytes % (A) 6.7 %; Neutrophils # (A) 3.98 X 10*3/uL (1.80-7.70); Neutrophils % (A) 66.3 %; Platelet Count 323 X 10*3/uL (140-440); RBC 5.07 X 10*6/uL (4.10-5.20); RDW 13.9 % (11.5-14.5)
[2021-01-14 06:29] LABS: % Iron Saturation 13.99 (12.00-45.00); African American GFR (CKD) 98.2 (60.0-200.0); Albumin 4.7 g/dL (3.80-4.90); Albumin/Globulin Ratio 2.04 (1.60-3.17); Anion Gap 13.4 mmol/L (4.00-12.00); BUN/Creat Ratio 17.5 Ratio (12.00-20.00); Calcium 9.6 mg/dL (8.7-10.3); Carbon Dioxide 25.6 mmol/L (21.6-31.8); Globulin 2.3 g/dL (1.6-3.3); Non-African American GFR(CKD) 84.8 (60.0-200.0); Potassium 3.9 mmol/L (3.5-5.5); Total Bilirubin 0.4 mg/dL (0.3-1.2)
[2021-01-14 06:37] LABS: Ferritin 21.4 ng/mL (10.0-291.0)
== END | disposition home or self-care (01) ==
LOC: LABWHC1 16:30
PROVIDERS: ATTEND Family Medicine
DX: D50.8 Other iron deficiency anemias (principal); R53.83 Other fatigue
CPT/HCPCS: 36415; 80053; 82728; 83540; 83550; 84443; 85025

== ENCOUNTER → 2021-01-26 | Outpatient (CLI) | payer BC ==
--- NOTE | 2021-01-26 11:14 | USB ---
Reason for exam: follow-up at short interval from prior study. History: Patient has history of breast cancer at age 49. US discontinued breast bx LT of the left breast, October 19, 2020. Benign US breast aspiration single RT of the right breast, April 20, 2020. Malignant MG pre op needle loc LT of the left breast, December 25, 2019. Lumpectomy of the left breast, December 25, 2019. Malignant US biopsy breast VAD LT of the left breast, December 03, 2019. Benign US biopsy breast VAD RT of the right breast, December 03, 2019. Benign right US cyst aspiration of the right breast, March 05, 2008. Physical Findings: Nurse Summary: patient denies complaints today, small 0.5cm palpable area noted left breast 12 o'clock at scar (nurse TM). US Breast Limited BILAT Right limited breast ultrasound including focal area of concern, retroareolar and axilla demonstrates a 4 x 3mm oval, cystic lesion at 8 o'clock, a 9 x 4mm oval, cystic lesion at 9 o'clock, a 5 x 3mm lobular, cystic lesion at 9 o'clock a 7 x 5mm oval, cystic lesion with some debris at 9 o'clock and a 6 x 4mm oval, mixed lesion at 10 o'clock, 6 month follow up, possible complicated cyst. Left limited breast ultrasound including focal area of concern, retroareolar and axilla demonstrates a 24mm irregular, hypoechoic lesion at 12 o'clock, unchanged. Scanned right 6-12 o'clock. Scanned left 11-1 o'clock (12 o'clock scar) These results were verbally communicated with the patient and result sheet given to the patient on 01/26/21. ASSESSMENT: Probably benign, BI-RAD 3 RECOMMENDATION: Follow-up diagnostic mammogram of the left breast in 6 months. (to assess any evolving post therapy change) Ultrasound of the right breast in 6 months. (lateral half attention 10 o'clock) Breast MRI follow up can be considered as indicated on the 11/11/20 report.
== END | disposition home or self-care (01) ==
LOC: RADUSWWP 08:54
PROVIDERS: ATTEND Student in an Organized Health Care Education/Training Program
DX: Z08 Encounter for follow-up examination after completed treatment for malignant neoplasm (principal); Z85.3 Personal history of malignant neoplasm of breast

== ENCOUNTER → 2021-01-26 | Outpatient (CLI) | payer BC ==
[2021-01-26 17:24] LABS: Estradiol 104.1 pg/mL; Follicle Stimulating Hormone 14.6 mIU/mL
== END | disposition home or self-care (01) ==
LOC: LABWHC1 10:02
PROVIDERS: ATTEND Obstetrics & Gynecology
DX: N95.9 Unspecified menopausal and perimenopausal disorder (principal)
CPT/HCPCS: 36415; 82670; 83001; 84144

== ENCOUNTER → 2022-11-08 | Outpatient (CLI) | payer BC ==
[2022-11-08 22:48] LABS: Basophils # (A) 0.04 X 10*3/uL (0.00-0.10); Basophils % (A) 0.8 %; Eosinophils # (A) 0.21 X 10*3/uL (0.04-0.35); Eosinophils % (A) 4.3 %; HCT 45.5 % (37.2-46.3); Lymphocytes # (A) 1.41 X 10*3/uL (0.90-5.00); Lymphocytes % (A) 29.1 %; MCH 26.1 pg (27.0-32.0); MCHC 30.8 d/dL (32.0-37.0); MCV 84.7 FL (80.0-97.0); Mean Platelet Volume 9.8 FL (9.5-12.2); Monocytes # (A) 0.39 X 10*3/uL (0.20-1.00); NRBC Per 100 WBC 0 X 10*3/uL (0.00-0.01); Neutrophils # (A) 2.78 X 10*3/uL (1.80-7.70); Neutrophils % (A) 57.4 %; Platelet Count 317 X 10*3/uL (140-440); RBC 5.37 X 10*6/uL (4.10-5.20); RDW 13.5 % (11.5-14.5); WBC 4.85 X 10*3/uL (4.50-10.00)
[2022-11-09 03:20] LABS: % Iron Saturation 13.65 (12.00-45.00); ALT 16 U/L (8-44); AST 14 U/L (13-35); Albumin 4.7 d/dL (3.8-4.9); Albumin/Globulin Ratio 1.88 Ratio (1.60-3.17); Alkaline Phosphatase 70 U/L (41-126); BUN/Creat Ratio 12.62 Ratio (12.00-20.00); Blood Urea Nitrogen 10.1 mg/dL (9.0-27.0); Calcium 10.1 mg/dL (8.7-10.3); Carbon Dioxide 29.4 mmol/L (21.6-31.8); Chloride 102 mmol/L (96-109); Ferritin 79.8 ng/mL (10.0-291.0); Globulin 2.5 d/dL (1.6-3.3); Glucose 88 mg/dL (70-110); Iron 52 UG/DL (50-170); Potassium 4.5 mmol/L (3.5-5.5); Sodium 141 mmol/L (135-145); Total Bilirubin 0.3 mg/dL (0.3-1.2); Total Iron Binding Capacity 381 UG/DL (228-460); Total Protein 7.2 d/dL (6.2-8.2)
== END | disposition home or self-care (01) ==
LOC: LABWHC1 13:46
PROVIDERS: ATTEND Family Medicine
DX: Z00.00 Encounter for general adult medical examination without abnormal findings (principal); D50.8 Other iron deficiency anemias; R53.83 Other fatigue
CPT/HCPCS: 36415; 80053; 82306; 82728; 83540; 83550; 84443; 85025

== ENCOUNTER 2023-09-19 07:02 | Day surgery (SDC) | payer BC ==
[2023-09-16 12:00] VITALS: BMI 29.2
--- NOTE | 2023-09-16 13:06 | P.HPOR ---
History of Present Illness H&P Date: 09/16/23 Subjective: This is a 53 year old female that presents today for initial evaluation regarding a one year history of right hand numbness and tingling with associated weakness involving the thumb index middle and ring finger. She's tried wearing wrist braces at night time with some occasional relief. She states she still has numbness on a daily basis. She also complains of right thumb pain with associated locking catching and clicking when she tries to move the thumb. Physical Examination: RUE: AIN/PIN/Radial/Ulnar/Median motor intact. Radial/Ulnar/Median SILT. 2+/4 Radial/Ulnar pulses palpated. 5/5 APB, 5/5 FDI. Negative Finkelsteins, negative CMC grind, positive Durkan's compression. TTP over thumb A1 xander with locking and catching. Imaging: X-Rays of the right hand 3V taken in office today demonstrate no abnormality. Impression: 1.) Right carpal tunnel syndrome 2.) Right trigger thumb Plan: Diagnosis and treatment options were discussed with the patient. She has failed conservative treatment for her symptoms and would like to go forward with a right endoscopic verse open carpal tunnel release and a right thumb A1 xander release. Risks and benefits of surgery including bleeding, infection, damage to surrounding tissue, need for further surgery, possible need to convert to open procedure, residual numbness were discussed and the patient wished to go forward with surgery. The patient was agreeable with this plan. I anticipate 2 weeks off of work post operatively, this can be extended if needed. CC: Angelina Weber DO Orthopedic Hand/Upper Extremity Surgeon Past Medical History Past Medical History: Asthma, Cancer Additional Past Medical History / Comment(s): hx iron deficiency anemia- RESOLVED. left breast cancer dx. December 2019 History of Any Multi-Drug Resistant Organisms: None Reported Past Surgical History: Breast Surgery, Section, Orthopedic Surgery, Tonsillectomy, Tubal Ligation Additional Past Surgical History / Comment(s): right ankle surgery. right breast cyst apsiration-2007. left breast lumpectomy December 2019 Past Anesthesia/Blood Transfusion Reactions: No Reported Reaction Smoking Status: Former smoker - Past Family History Father Family Medical History: Cancer Additional Family Medical History / Comment(s): leukemia Medications and Allergies Home Medications Medication Instructions Recorded Confirmed Type Fluticasone Propion/Salmeterol 1 puff INHALATION RT-BID 05/12/15 09/16/23 History [Advair 250-50 Diskus] Omeprazole 20 mg PO DAILY 11/25/19 09/16/23 History FLUoxetine HCL [PROzac] 20 mg PO DAILY 10/11/20 09/16/23 History Cholecalciferol (Vitamin D3) 125 mcg PO DAILY 09/16/23 09/16/23 History [Vitamin D3 (125 MCG = 5,000 IU)] Folic Acid 1 mg PO DAILY 09/16/23 09/16/23 History [place]-3/Dha/Epa/Fish Oil [Fish Oil 1 each PO DAILY 09/16/23 09/16/23 History 1,000 mg Softgel] Vitamin B Complex [B-Complex] 1 each PO DAILY 09/16/23 09/16/23 History Allergies Allergy/AdvReac Type Severity Reaction Status Date / Time azithromycin AdvReac HEADACHES Verified 09/16/23 10:58 Physical Examination Osteopathic Statement: *. No significant issues noted on an osteopathic structural exam other than those noted in the History and Physical/Consult.
[~2023-09-19 07:02] MED LIST changes: -ALPRAZolam 0.5 MG TAB ONE; -ALPRAZolam 0.5 MG TAB PO ONE; -BUPIVACAIN-EPI 0.25%-1:200,000 30 ML VIAL SQ ONE; -DEXAMETHASONE SOD PHOSPHATE 10 MG/ML 1 ML VIAL IV ONE; -HEPARIN SODIUM,PORCINE 5,000 UNIT/ML 1 ML VIAL SQ ONE; -HYDROcodone/APAP 5-325MG 1 EACH TAB ONE; -HYDROcodone/APAP 5-325MG 1 EACH TAB PO ONE; -LACTATED RINGERS 1,000 ML IV ONE; -LACTATED RINGERS 1,000 ML IV SCH; -LIDOCAINE 1% INJ 10MG/ML (20 ML MDV) ONE; -LIDOCAINE 1% INJ 10MG/ML (20 ML MDV) SQ ONE; -METHYLENE BLUE 50 MG/10 ML AMPUL INJ ONE; -MIDAZOLAM 2 MG/2 ML VIAL IV PRN; -MIDAZOLAM 2 MG/2 ML VIAL ONE; -ONDANSETRON 4 MG/2 ML VIAL ONE; -PROPOFOL 10 MG/ML 20 ML VIAL IV ONE; -SCOPOLAMINE 1.5MG/72HR PATCH TRANSDERM ONE; -SODIUM CHLORIDE 0.9% 50 ML with ceFAZolin 2,000 MG IV ONE; -SUCCINYLCHOLINE CHLORIDE 100 MG/5 ML SYR IV ONE; -fentaNYL (PF) 50 MCG/ML 2 ML AMP ONE
[2023-09-19] MEDS ORDERED: HYDROmorphone 0.5 MG/0.5 ML SYRINGE IVP PRN (07:22)
[2023-09-19] MEDS ORDERED: DEXAMETHASONE SOD PHOSPHATE 4 MG/ML 1 ML VIAL IV ONE (07:22)
[2023-09-19] MEDS ORDERED: ONDANSETRON 4 MG/2 ML VIAL IVP ONE (07:22)
[2023-09-19] MEDS: LACTATED RINGERS 1,000 ML IV ONE (07:22)
[2023-09-19] MEDS: LIDOCAINE 2% INJ 20 MG/ML SQ ONE ×2 (08:00→08:10)
[2023-09-19] MEDS: BUPIVACAINE (PF) 0.5% 30 ML VIAL SQ ONE ×2 (08:01→08:10)
[2023-09-19] MEDS ORDERED: fentaNYL (PF) 50 MCG/ML 2 ML AMP ONE (08:05)
[2023-09-19] MEDS ORDERED: PROPOFOL 10 MG/ML 20 ML VIAL IV ONE (08:05)
[2023-09-19] MEDS ORDERED: LIDOCAINE 1% INJ 10MG/ML (20 ML MDV) ONE (08:05)
[2023-09-19] MEDS ORDERED: MIDAZOLAM 2 MG/2 ML VIAL ONE (08:05)
[2023-09-19] MEDS: SODIUM CHLORIDE 0.9% 500 ML 500 ML IV ONE (08:09)
[2023-09-19] MEDS: LACTATED RINGERS 1,000 ML IV SCH (08:18)
[2023-09-19] MEDS: LACTATED RINGERS 500 ML IV ONE (08:20)
[2023-09-19 08:28] VITALS: PULSE 68; TEMP 97.2
--- NOTE | 2023-09-19 08:36 | P.OP ---
Date of Procedure: 09/19/23 Preoperative Diagnosis: 1.) Right carpal tunnel syndrome 2.) Right thumb trigger finger Postoperative Diagnosis: 1.) Right carpal tunnel syndrome 2.) Right thumb trigger finger Procedure(s) Performed: 1.) Right endoscopic carpal tunnel release 2.) Right thumb trigger finger A1 xander release Anesthesia: MAC Surgeon: Aden Washington Community Affairs Director #1: Dallas Burger Estimated Blood Loss (ml): 0 Pathology: none sent Condition: stable Disposition: PACU Description of Procedure: This is a 53 year old female who presents today for a right endoscopic carpal tunnel release and right thumb A1 xander release after having failed conservative treatment in the past. Risks and benefits of surgery were discussed with the patient including bleeding, damage to surrounding tissue, infection, need to convert to open procedure, need for further surgery as well as risks of anesthesia including pulmonary embolism and even and the patient wished to proceed with surgical intervention. The patients was seen in the pre-operative area by myself. Consent and H&P were completed and updated. The correct extremity was marked in the pre-operative area by myself and all other questions were answered. Operative Narrative: The patient was brought to the operating room by the department of anesthesia. They remained on the portable stretcher and a rolling hand table was brought to the side of the operative extremity. Pre-operative time out was performed indicating the correct patient, procedure and laterality. All in the room agreed. The patient was then drifted off to sleep by the department of anesthesia. MAC anesthesia was utilized and a 50:50 mixture of 1% Lidocaine and 0.5% bupivacaine was injected into the subcutaneous tissues of the palmar skin, 8ccs total. A nonsterile tourniquet was then applied to the operative extremity and the right upper extremity was then prepped and draped in normal sterile fashion. The operative extremity was the exsanguinated with an esmarch bandage and the tourniquet was inflated to 250mmHg. 15 blade scalpel was utilized to make a transverse incision on the palmar skin just ulnar to the palmaris longus tendon at the level of the distal wrist crease. Ragnell retractor was then placed radially and blunt dissection was performed to reveal the distal forearm fascia. This was lifted with fine Ajit pick ups and Littler tenotomy scissors were then used to open the forearm fascia transversely and a double skin hook was then placed. Hamate finder was placed into the carpal tunnel and then sequential sized dilators were inserted followed by the synovial elevator to separate the flexor tenosynovium from the undersurface of the transverse carpal ligament and a washboard texture was felt. The MicroAire endoscopic carpal tunnel release system gun was the then inserted into the carpal tunnel hugging the deep portion of the transverse carpal ligament in line with the base of the ring finger. Transverse fibers of the ligament were directly visualized. Pressure was applied on the palm to reveal the distal extent of the transverse carpal ligament. The blade was then deployed and the distal half of the transverse carpal ligament was released. The scope was then brought distal again and remaining transverse fibers were incised with the blade. The proximal half of the transverse carpal ligament was then divided and again the scope was advanced distal and remaining transverse fibers were incised with the blade. The radial and ulnar leaflets were directly visualized and mobile consistent with complete release. Tenotomy scissors were then utilized to release the remaining distal forearm fascia under direct visualization taking care to preserve the palmar cutaneous branch of the median nerve. Skin closure was performed with interrupted 4-0 Monocryl suture followed by steri strips. Transverse incision was made at the base of the thumb overlying the A1 xander. Blunt dissection was taken down to the level of the A1 xander. Ragnell retractors were placed both radially and ulnarly to protect neurovascular bundles. Littler tenotomy scissors were then used to release the A1 xander from proximal to distal under direct visualization. Proximal fascial attachments were released. The tendon was then taken through range of motion and no locking or catching was appreciated. The wound was then closed with interrupted 4-0 nylon sutures in a horizontal mattress fashion. Sterile dressing was applied consisting 4x4s, Webril, and an lauren bandage. Tourniquet was let down and the hand immediately was well perfused. The patient was then woken by the department of anesthesia and transferred to PACU in stable condition. Dallas ALONZO was present for the case in its entirety and assisted in major portions of the case and protection of vital neurovascular structures. Aden Washington D.O. Orthopedic Hand/Upper Extremity Surgeon
[2023-09-19 09:13] VITALS: BP 154/72
[2023-09-19 09:56] VITALS: RESP 18
== END 2023-09-19 09:15 | disposition home or self-care (01) ==
LOC: OR 07:02
PROVIDERS: ATTEND Orthopaedic Surgery Hand Surgery
DX: G56.01 Carpal tunnel syndrome, right upper limb (principal); M65.311 Trigger thumb, right thumb; J45.909 Unspecified asthma, uncomplicated; F32.A Depression, unspecified; F41.9 Anxiety disorder, unspecified; K21.9 Gastro-esophageal reflux disease without esophagitis; Z79.51 Long term (current) use of inhaled steroids; Z85.3 Personal history of malignant neoplasm of breast; Z87.891 Personal history of nicotine dependence; Z88.1 Allergy status to other antibiotic agents; Z98.51 Tubal ligation status; Z79.899 Other long term (current) drug therapy; Z98.890 Other specified postprocedural states
CPT/HCPCS: 26055; 29848; J2001 ×2; J2250; J3010; J2704; J0665

== ENCOUNTER → 2024-04-29 | Outpatient (CLI) | payer BC ==
[2024-04-29 15:53] LABS: Basophils # (A) 0.03 X 10*3/uL (0.00-0.10); Basophils % (A) 0.9 %; Eosinophils # (A) 0.12 X 10*3/uL (0.04-0.35); Eosinophils % (A) 3.5 %; HCT 41.7 % (37.2-46.3); HGB 13.2 g/dL (12.0-15.0); Lymphocytes % (A) 37.6 %; MCHC 31.7 g/dL (32.0-37.0); MCV 82.1 FL (80.0-97.0); Mean Platelet Volume 9.7 FL (9.5-12.2); Monocytes # (A) 0.29 X 10*3/uL (0.20-1.00); Monocytes % (A) 8.4 %; NRBC Per 100 WBC 0 X 10*3/uL (0.00-0.01); Neutrophils # (A) 1.71 X 10*3/uL (1.80-7.70); Neutrophils % (A) 49.3 %; Platelet Count 286 X 10*3/uL (140-440); RBC 5.08 X 10*6/uL (4.10-5.20); RDW 13.4 % (11.5-14.5); WBC 3.46 X 10*3/uL (4.50-10.00)
[2024-04-29 16:24] LABS: % Iron Saturation 28.61 (12.00-45.00); BUN/Creat Ratio 14.22 Ratio (12.00-20.00); Blood Urea Nitrogen 12.8 mg/dL (9.0-27.0); Carbon Dioxide 28.2 mmol/L (21.6-31.8); Chloride 109 mmol/L (96-109); Chol/HDL Ratio 3.41 Ratio; Glucose 96 mg/dL (70-110); Iron 95 UG/DL (50-170); LDL Cholesterol,Calculated 141.2 mg/dL (0.0-131.0); Potassium 4.6 mmol/L (3.5-5.5); Sodium 143 mmol/L (135-145); Total Iron Binding Capacity 332 UG/DL (228-460); VLDL Calculation 15.04 mg/dL (5.00-40.00)
[2024-04-29 16:25] LABS: ALT 13 U/L (8-44); AST 16 U/L (13-35); Albumin 4.3 g/dL (3.8-4.9); Albumin/Globulin Ratio 1.95 Ratio (1.60-3.17); Alkaline Phosphatase 63 U/L (41-126); Calcium 9.7 mg/dL (8.7-10.3); Ferritin 68.6 ng/mL (10.0-291.0); Globulin 2.2 g/dL (1.6-3.3); Total Bilirubin 0.4 mg/dL (0.3-1.2); Total Protein 6.5 g/dL (6.2-8.2)
== END | disposition home or self-care (01) ==
LOC: LABWHC1 09:12
PROVIDERS: ATTEND Physician Assistant
DX: Z13.220 Encounter for screening for lipoid disorders (principal); Z13.228 Encounter for screening for other metabolic disorders; Z13.29 Encounter for screening for other suspected endocrine disorder; E55.9 Vitamin D deficiency, unspecified; D50.8 Other iron deficiency anemias; Z79.899 Other long term (current) drug therapy
CPT/HCPCS: 36415; 80053; 80061; 82306; 82728; 83540; 83550; 84443; 85025

== ENCOUNTER → 2024-10-09 | Outpatient (CLI) | payer BC ==
--- NOTE | 2024-10-10 07:44 | MR ---
EXAMINATION TYPE: MR knee LT wo con DATE OF EXAM: 10/09/2024 COMPARISON: Outside left knee x-rays October 02, 2024 HISTORY: Left knee pain and swelling, Injured September 03, 2024 tripped and fell on concrete TECHNIQUE: Multiplanar, multisequence images of the knee is performed without IV contrast. FINDINGS: MEDIAL MENISCUS: Anterior and posterior horns are intact without tear. LATERAL MENISCUS: Anterior and posterior horns are intact without tear. CRUCIATE LIGAMENTS: The anterior and posterior cruciate ligaments are intact and unremarkable. COLLATERAL LIGAMENTS: The medial collateral ligament and lateral collateral ligament complex are inta ct and unremarkable. EXTENSOR MECHANISM: Visualized quadriceps and patellar tendons are intact. EFFUSION: No significant suprapatellar joint effusion. POPLITEAL CYST: No popliteal/george cyst. TRICOMPARTMENT SPACES: Mild tricompartment joint space loss and spurring. CARTILAGE: Tricompartmental articular cartilage is preserved. BONE MARROW SIGNAL: Small area of subtle increased T2 signal medial aspect distal medial femoral cond yle coronal image 20 measuring around 1.5 cm. OTHER: Mild Superficial infrapatellar subcutaneous edema. IMPRESSION: 1. Small area of abnormal bone marrow edema medial aspect distal medial femoral condyle. 2. No meniscal or ligamentous tear is present. [facility], , 10/10/2024 7:41 AM
== END | disposition home or self-care (01) ==
LOC: RADMRIMAIN 19:01
PROVIDERS: ATTEND Orthopaedic Surgery
DX: R60.9 Edema, unspecified (principal); W01.0XXA Fall on same level from slipping, tripping and stumbling without subsequent striking against object, initial encounter

== ENCOUNTER → 2024-10-22 | Outpatient (CLI) | payer BC ==
[2024-10-22 10:27] LABS: Basophils # (A) 0.03 X 10*3/uL (0.00-0.10); Basophils % (A) 0.7 %; Eosinophils # (A) 0.12 X 10*3/uL (0.04-0.35); Eosinophils % (A) 2.8 %; HCT 43.2 % (37.2-46.3); HGB 13.5 g/dL (12.0-15.0); Immature Grans, Automated 0 %; Lymphocytes # (A) 1.64 X 10*3/uL (0.90-5.00); Lymphocytes % (A) 38.6 %; MCH 25.8 pg (27.0-32.0); MCHC 31.3 g/dL (32.0-37.0); MCV 82.6 FL (80.0-97.0); Mean Platelet Volume 10.1 FL (9.5-12.2); Monocytes # (A) 0.27 X 10*3/uL (0.20-1.00); Monocytes % (A) 6.4 %; NRBC Per 100 WBC 0 X 10*3/uL (0.00-0.01); Neutrophils # (A) 2.19 X 10*3/uL (1.80-7.70); Neutrophils % (A) 51.5 %; Platelet Count 301 X 10*3/uL (140-440); RBC 5.23 X 10*6/uL (4.10-5.20); RDW 13.3 % (11.5-14.5); WBC 4.25 X 10*3/uL (4.50-10.00)
[2024-10-22 10:54] LABS: Chol/HDL Ratio 3.86 Ratio
[2024-10-22 10:55] LABS: ALT 17 U/L (8-44); AST 18 U/L (13-35); Albumin 4.3 g/dL (3.8-4.9); Albumin/Globulin Ratio 1.79 Ratio (1.60-3.17); Alkaline Phosphatase 73 U/L (41-126); BUN/Creat Ratio 12.56 Ratio (12.00-20.00); Blood Urea Nitrogen 11.3 mg/dL (9.0-27.0); Calcium 9.7 mg/dL (8.7-10.3); Carbon Dioxide 25.6 mmol/L (21.6-31.8); Chloride 104 mmol/L (96-109); Globulin 2.4 g/dL (1.6-3.3); Glucose 106 mg/dL (70-110); LDL Cholesterol,Calculated 112.5 mg/dL (0.0-131.0); Potassium 4.3 mmol/L (3.5-5.5); Sodium 141 mmol/L (135-145); Total Bilirubin 0.6 mg/dL (0.3-1.2); Total Protein 6.7 g/dL (6.2-8.2)
== END | disposition home or self-care (01) ==
LOC: LABWHC1 07:23
PROVIDERS: ATTEND Family Medicine
DX: F41.3 Other mixed anxiety disorders (principal); K21.9 Gastro-esophageal reflux disease without esophagitis; N95.9 Unspecified menopausal and perimenopausal disorder; J45.40 Moderate persistent asthma, uncomplicated; D50.8 Other iron deficiency anemias; Z79.899 Other long term (current) drug therapy
CPT/HCPCS: 36415; 80053; 80061; 82306; 84443; 85025

== ENCOUNTER → 2024-12-07 | Outpatient (CLI) | payer BC ==
[2024-12-07 21:24] LABS: Follicle Stimulating Hormone 43.5 mIU/mL
== END | disposition home or self-care (01) ==
LOC: LABWHC1 13:16
PROVIDERS: ATTEND Obstetrics & Gynecology
DX: N95.1 Menopausal and female climacteric states (principal)
CPT/HCPCS: 36415; 82670; 83001; 84144; 84403